=== PATIENT | female | born 1995 | race Caucasian/White ===

== ENCOUNTER 2020-10-12 10:35 | Emergency (ER) | payer SELFPAY ==
[~2020-10-12] VITALS: Ht 157.5 cm; Wt 100.7 kg
[2020-10-12 10:48] VITALS: BP 112/81
[2020-10-12] MEDS ORDERED: MOT800 PO (11:50)
== END 2020-10-12 12:01 | disposition home or self-care (01) ==
LOC: ED 10:35
DX: S39.012A Strain of muscle, fascia and tendon of lower back, initial encounter (principal); E66.9 Obesity, unspecified; X58.XXXA Exposure to other specified factors, initial encounter; Y93.89 Activity, other specified; Y92.89 Other specified places as the place of occurrence of the external cause; Y99.8 Other external cause status
CPT/HCPCS: J1885